=== PATIENT | female | born 1935 | race Caucasian/White ===

== ENCOUNTER 2017-04-25 12:38 | Day surgery (SDC) | payer MEDICARE, BC ==
[~2017-04-25] VITALS: Ht 152.4 cm; Wt 69.0 kg
[2017-04-25] MEDS ORDERED: ZOCOR 10MG10 MG PO (13:05)
[2017-04-25] MEDS ORDERED: MULTIPLE VITAMI1 CAP PO (13:05)
[2017-04-25] MEDS ORDERED: CALCIUM CARBON650 M2 PO (13:05)
[2017-04-25] MEDS ORDERED: EPA FISH OIL1 SGL PO (13:05)
[2017-04-25] MEDS ORDERED: PRINZIDE 12.5 M1 TA1 PO (13:17)
[2017-04-25] MEDS ORDERED: ASPIRIN 81M81 MG/TA2 PO (13:17)
[2017-04-25] MEDS ORDERED: CRANBERRY500 M3 PO (13:18)
[2017-04-25] MEDS ORDERED: VITAMIN D32000 I1 PO (13:18)
[2017-04-25] MEDS ORDERED: MELATONIN1 MG PO (13:18)
[2017-04-25] MEDS ORDERED: DITROPAN 5MG TAB5 MG PO (13:19)
[2017-04-25 13:21] VITALS: BP 120/61; PULSE 65; TEMP 97.9
[2017-04-25 14:55] VITALS: BP 106/68; PULSE 61; TEMP 97.7
[2017-04-25 15:10] VITALS: BP 117/62; PULSE 65
[2017-04-25 15:25] VITALS: BP 106/69; PULSE 60
[2017-04-25 15:40] VITALS: BP 101/50; PULSE 60
== END 2017-04-25 15:50 | disposition home or self-care (01) ==
LOC: SDCO 12:38
DX: D12.3 Benign neoplasm of transverse colon (principal); K57.30 Diverticulosis of large intestine without perforation or abscess without bleeding; K64.0 First degree hemorrhoids; I10 Essential (primary) hypertension; J45.909 Unspecified asthma, uncomplicated; Z86.010 Personal history of colon polyps; Z83.71 Family history of colonic polyps
CPT/HCPCS: OP; J2250; J3010; J7030

== ENCOUNTER → 2017-08-24 | Outpatient (CLI) | payer MEDICARE, BC ==
[~2017-08-24] MED LIST: ASPIRIN 81M81 MG/TA2 PO; CALCIUM CARBON650 M2 PO; CRANBERRY500 M3 PO; DITROPAN 5MG TAB5 MG PO; EPA FISH OIL1 SGL PO; MELATONIN1 MG PO; MULTIPLE VITAMI1 CAP PO; PRINZIDE 12.5 M1 TA1 PO; VITAMIN D32000 I1 PO; ZOCOR 10MG10 MG PO
== END ==
LOC: MC.RAD 08-14 13:00
DX: Z12.31 Encounter for screening mammogram for malignant neoplasm of breast (principal)

== ENCOUNTER → 2018-10-01 | Outpatient (CLI) | payer MEDICARE, BC | LOC: MC.RAD 13:09 | DX: Z12.31 Encounter for screening mammogram for malignant neoplasm of breast (principal) ==

== ENCOUNTER → 2019-09-25 | Outpatient (CLI) | payer MEDICARE, BC ==
[2019-09-25 15:00] LABS: BASO % 0.5 % (0.0-2.0); EOS # 0.2 (0.0-0.7); EOS % 2.6 % (0-4.0); GRAN # 4.7 (1.4-6.5); GRAN % 57.7 % (42.2-75.2); HEMATOCRIT 47.9 % (37.0-47.0); HEMOGLOBIN 15.8 g/dl (12.5-16.0); LYMPH # 2.5 (1.2-3.4); MEAN CELL VOLUME 94 fl (80.0-100.0); MEAN CORPUSCULAR HEMOGLOBIN 31 pg (27.0-31.0); MEAN CORPUSCULAR HGB CONC 33 g/dl (33.0-37.0); MEAN PLATELET VOLUME 11.2 fl (7.4-10.4); MONO # 0.6 (0.1-0.6); MONO % 7.8 % (1.7-9.3); PLATELET COUNT 241 K/mm3 (130-400); RED BLOOD COUNT 5.11 M/mm3 (4.10-5.30); REDCELL DISTRIBUTION WIDTH-CV 13.5 % (11.5-14.5)
[2019-09-25 15:04] LABS: ALANINE AMINOTRANSFERASE 23 U/L (9-52); ALKALINE PHOSPHATASE 68 U/L (50-136); ANION GAP 9 mmol/L (7-16); AST,SGOT 26 U/L (15-37); BILIRUBIN,TOTAL 0.5 mg/dL (0.0-1.0); BLOOD UREA NITROGEN 20 mg/dL (7-17); CALCIUM 9.5 mg/dL (8.4-10.2); CARBON DIOXIDE 30 mmol/L (22-30); CHLORIDE 103 mmol/L (98-107); CREATININE, serum 0.77 (0.52-1.25); GLUCOSE 97 mg/dL (74-106); POTASSIUM 3.8 mmol/L (3.4-5.0); SODIUM 142 mmol/L (137-145); TOTAL PROTEIN 7.2 gm/dL (6.4-8.2)
[2019-09-25 15:22] LABS: TROPONIN-I < 0.012 ng/mL (0.000-0.035)
== END ==
LOC: ZCOL.LAB 14:41
PROVIDERS: Nurse Practitioner Family
DX: R07.89 Other chest pain (principal); I10 Essential (primary) hypertension; R42 Dizziness and giddiness

== ENCOUNTER → 2019-11-21 | Outpatient (CLI) | payer MEDICARE, BC | LOC: MC.RAD 10-24 09:30 | DX: Z12.31 Encounter for screening mammogram for malignant neoplasm of breast (principal) ==

== ENCOUNTER → 2020-11-24 | Outpatient (CLI) | payer MEDICARE, BC | LOC: MC.RAD 09:15 | DX: Z12.31 Encounter for screening mammogram for malignant neoplasm of breast (principal) ==

== ENCOUNTER → 2021-12-24 | Outpatient (CLI) | payer MEDICARE, BC | LOC: MC.RAD 11:05 | DX: Z12.31 Encounter for screening mammogram for malignant neoplasm of breast (principal) ==

== ENCOUNTER 2022-01-29 08:03 | Emergency (ER) | payer MEDICARE, BC ==
[~2022-01-29] VITALS: Ht 152.4 cm; Wt 72.7 kg
[2022-01-29 08:11] VITALS: PULSE 81
[2022-01-29 09:04] VITALS: BP 152/89
== END 2022-01-29 08:56 | disposition home or self-care (01) ==
LOC: COL.ER 08:03
DX: M54.2 Cervicalgia (principal)

== ENCOUNTER → 2022-02-15 | Outpatient (CLI) | payer MEDICARE, BC | LOC: COL.VAS 07:40 | DX: I08.2 Rheumatic disorders of both aortic and tricuspid valves (principal); I63.81 Other cerebral infarction due to occlusion or stenosis of small artery ==

== ENCOUNTER 2022-03-09 10:30 | Outpatient (RCR) | payer MEDICARE, BC | END 2022-03-10 | disposition home or self-care (01) | LOC: MKS.ESL.PT | DX: I69.398 Other sequelae of cerebral infarction (principal) ==

== ENCOUNTER 2022-04-06 10:30 | Outpatient (RCR) | payer MEDICARE, BC | END 2022-04-10 | disposition home or self-care (01) | LOC: MKS.ESL.PT | DX: I63.81 Other cerebral infarction due to occlusion or stenosis of small artery (principal) ==

== ENCOUNTER 2022-04-13 10:30 | Outpatient (RCR) | payer MEDICARE, BC | END 2022-05-11 | disposition home or self-care (01) | LOC: MKS.ESL.PT | DX: I63.81 Other cerebral infarction due to occlusion or stenosis of small artery (principal) ==